=== PATIENT | female | born 1960 | race Caucasian/White ===

== ENCOUNTER 2023-05-01 13:53 | Emergency (ER) | payer OTHER, SELFPAY ==
[2023-05-01 13:59] VITALS: BP 173/94
--- NOTE | 2023-05-01 15:48 | ED.MUSCINJ ---
HPI-Injury
General
Chief Complaint: Musculo-Skeletal Complaint
Source: patient
Exam Limitations: none
Time Seen by Provider: 05/01/23 15:21
Nursing documentation reviewed up to this point in time: agreed with
Travel History
Have you had any contact with someone who has COVID-19?: No
Do you have any symptoms of coronavirus? Fever > 100 degrees, chills, cough, shortness of breath, sore throat, loss of taste or smell, muscle aches, or headache?: No
History of Present Illness-Injury
Is this injury a work related problem?: No
Is pt an associate of [facility]?: No
Initial Injury comments:
Patient to ED with complaint of left medial ankle pain and swelling. States she wore hi-heels last tuesday. No injury. Tuesday night felt mild discomfort to posteror calf and bilateral ankle. States pain to ankle has gotten progressively worse.
Now with medial ankle and foot swelling. Still with mild calf discomfort. No fever/chills, recent illness. No skin rash. Brought to ED by spouse for eval.
Past History
Past History
ED Past Medical History: Hypothyroidism
ED Past Surgical History: None
Patient has exhibited threatening behavior?: No
Social History
Personal:
Living: with family
Employment: Employed
Review of Systems
Review of Systems
Allergies reviewed?: Yes
All Other Systems: ROS reviewed and negative except as documented in HPI and ROS
Constitutional: Reports no symptoms
EENT: Reports no symptoms
Respiratory: Reports no symptoms
Cardiac: Reports no symptoms
ABD/GI: Reports no symptoms
Musculoskeletal: Reports joint pain (pain and swelling to left medial ankle, mild calf discomfort.)
Skin: Reports no symptoms
Neurological: Reports no symptoms
Psychiatric: Reports no symptoms
Musculoskeletal Injury Exam
Musculoskeletal Injury Exam
Left Medial Ankle:
Pain with Movement?: Moderate
Tender to palpation?: Moderate
Soft tissue swelling?: Moderate
External deformity and angulation?: None
Joint effusion?: None
Contusion?: None
Hematoma-local bleeding into tissue?: None
Strain- Sprain- Tear (Connective tissue injury)?: None
Crepitus with movement?: No
Joint instability?: No
Malalignment/deformity?: No
Range of motion: Limited
Distal skin color and temperature: normal-warm & good color
Capillary Refill: normal
Normal distal neurovascular exam?: Yes
Peripheral Pulses: posterior tibial (left): 3+, posterior tibial (right): 3+, dorsalis pedis (left): 3+ and dorsalis pedis (right): 3+
Phy Exam
General Physical Exam
General Presentation: well appearing and no apparent distress
General age: appears stated age
General Skin: warm
General Habitus: normal
General Mental: alert
Musculoskeletal Exam
Musculoskeletal Exam: joint swelling (pain and swelling left medial ankle, mild calf discomfort.) and neuro vasc intact
Skin Exam
Skin Exam: normal color, warm/dry and no rash
Psychiatric Exam
Psychiatric Exam: normal mood/affect
Injury Course
Orders/Labs/Results
Orders:
Orders
05/01/23 14:02
CR Ankle - Left Min 3 Views Urgent
Comment:
Reason For Exam: pain
05/01/23 15:44
Periph Venous Lwr Ext Left US [US Periph Venous LOWER Ext LT] Urgent
Comment:
Reason For Exam: calf tenderness, swelling lower extrem, no trauma.
05/01/23 16:35
Electrocardiogram (*1) Urgent
Reason for Study: Chest Pain
05/01/23 16:36
EKG- Treatment ONCE
05/01/23 17:07
Complete Blood Count/With Diff Urgent
Comprehensive Metabolic Panel Urgent
Lipase Urgent
Troponin I Urgent
05/01/23 18:09
Ortho Boot Left- Treatment ONCE
Short or tall?: Tall
Abnormal Lab Results
05/01/23
17:07
MCH 32.5 H pg
(27.0-31.0)
Abs Immat Gran (auto) 0.1 H 10^3/uL
(0-0.05)
Absolute Neuts (auto) 7.2 H 10^3/uL
(1.4-6.5)
Absolute Monos (auto) 0.7 H 10^3/uL
(0.1-0.6)
Immature Gran % 0.6 H %
(0-0.5)
Lymphocytes % 17.2 L %
(20.5-51.1)
Glucose 100 H mg/dl
(70-99)
05/01/23 17:07
05/01/23 17:07
*Radiology
Radiology exam reviewed: radiology read reviewed
*Pulse Oximetry
Patient hypoxic: no
*Critical Care Note
Total Time (30-74mins, 75-104mins- exclusive of procedures): Not Applicable
Update Note
Update Note:
Patient now notes substernal chest discomfort. No SOB. States she first noticed discomfort in waiting room. ALso states last week pt and drove from [place] to [place]. No prior history of blood clots. WIll check EKG, labs. US pending.
EKG NSR, Troponin neg, US neg. No furthter chest discomfort. She is discharged home and will follow up with PCP
ED Attending Note
-
Portions of this chart may have been created with voice recognition software.� Occasional wrong word or��sound alike� substitutions may have occurred due to the inherent limitations of voice recognition software.
Discharge Plan
Departure
Patient Disposition: Home (Routine Discharge)
Date of Disposition: 05/01/23
Time of Disposition: 18:09
Patient with high blood pressure during this ER visit?: No
Condition: Good
Covid-19: Not Applicable
Discharge Problem:
Acute ankle pain
Instructions: Ankle Sprain (DC), Ibuprofen, Using Cold for Pain
Referrals:
Mary Kay Grubbs DO [Active] - Call in 1-3 days for appt
Edwige Moreno DO [Family Provider] -
Interventions
Interventions:
*Risk Screen - Suicide Last Done: 05/01/23 16:24
*General Assessment Last Done: 05/01/23 13:59
*Neglect/Abuse Screening Last Done: 05/01/23 16:24
ED- Fall Risk Assessment Last Done: 05/01/23 18:22
*ED COVID-19 Vaccine History Last Done: 05/01/23 13:59
*Nursing Disposition Last Done: 05/01/23 18:22
ED-Musculoskeletal Assessment Last Done: 05/01/23 16:24
Discharge Date and Time
Discharge Date/Time: 05/01/23 18:22
[2023-05-01 17:15] LABS: % Basophils 0.8 % (0-2); % Eosinophils 1.8 % (0-6); % Immature Granulocytes 0.6 % (0-0.5); % Lymphocytes 17.2 % (20.5-51.1); % Monocytes 7.3 % (1.7-9.3); % Neutrophils 72.3 % (42.2-75.2); Absolute Basophils 0.1 10^3/uL (0-0.2); Absolute Eosinophils 0.2 10^3/uL (0-0.7); Absolute Immature Granulocytes 0.1 10^3/uL (0-0.05); Absolute Lymphocytes 1.7 10^3/uL (1.2-3.4); Absolute Monocytes 0.7 10^3/uL (0.1-0.6); Absolute Neutrophils 7.2 10^3/uL (1.4-6.5); Hemoglobin 14.4 g/dL (12.0-16.0); Mean Corp Hgb Conc. 35.1 g/dL (33.0-37.0); Mean Corpuscular Hgb 32.5 pg (27.0-31.0); Mean Corpuscular Volume 92.6 fL (81.0-99.0); Mean Platelet Volume 9.5 fL (7.4-10.4); Nucleated Red Blood Cells % 0 %; Platelet Count 242 10^3/uL (130-400); Red Blood Cell Count 4.43 10^6/uL (4.20-5.40); Red Cell Dist. Width 13.7 % (11.5-14.5)
[2023-05-01 17:38] LABS: ALT (SGPT) 21 U/L (0-35); AST (SGOT) 26 U/L (14-36); Albumin 4.4 g/dl (3.5-5.0); Alkaline Phosphatase 72 U/L (38-126); Blood Urea Nitrogen 16 mg/dl (7-17); Calcium 9.6 mg/dl (8.4-10.2); Carbon Dioxide 26 mmol/L (22-30); Chloride 106 mmol/L (98-107); Glucose 100 mg/dl (70-99); Lipase 207 U/L (23-300); Sodium 137 mmol/L (135-145); Total Bilirubin 1.3 mg/dl (0.2-1.3); Total Protein 6.9 g/dl (6.3-8.2); eGFR > 60.00
[2023-05-01 17:41] LABS: Potassium 4.4 mmol/L (3.5-5.1)
[2023-05-01 17:49] LABS: Troponin I < 0.012 ng/ml
== END 2023-05-01 18:22 | disposition home or self-care (01) ==
LOC: EMR 13:53
PROVIDERS: Nurse Practitioner; EMERGENCY PHYSICIAN Emergency Medicine; FAMILY PHYSICIAN Student in an Organized Health Care Education/Training Program
DX: M25.572 Pain in left ankle and joints of left foot (principal); E03.9 Hypothyroidism, unspecified
CPT/HCPCS: 99284; 73610; 80053; 83690; 84484; 85025; 93005; 93971

== ENCOUNTER → 2023-05-27 08:06 | Outpatient (REF) | payer OTHER, SELFPAY ==
[2023-05-27 10:53] LABS: Urine Albumin Negative (Neg - Trace); Urine Bilirubin Negative (Negative); Urine Character Clear (Clear); Urine Color Yellow; Urine Glucose Negative (Negative); Urine Ketone Negative (Negative); Urine Leukocyte 2+ (Negative); Urine Nitrite Negative (Negative); Urine Occult Blood Negative (Negative); Urine Specific Gravity 1.015 (<1.030); Urine Urobilinogen Negative (Neg - 1+)
[2023-05-27 11:08] LABS: ALT (SGPT) 27 U/L (0-35); AST (SGOT) 28 U/L (14-36); Albumin 4.5 g/dl (3.5-5.0); Alkaline Phosphatase 61 U/L (38-126); Blood Urea Nitrogen 15 mg/dl (7-17); Calcium 9.8 mg/dl (8.4-10.2); Carbon Dioxide 26 mmol/L (22-30); Chloride 106 mmol/L (98-107); Glucose 94 mg/dl (70-99); HDL Cholesterol 41 mg/dl; LDL Cholesterol, Calculated 195 mg/dl; Sodium 138 mmol/L (135-145); Total Bilirubin 1.6 mg/dl (0.2-1.3); Total Cholesterol 271 mg/dl (50-199); Total Protein 6.9 g/dl (6.3-8.2); Triglyceride 176 mg/dl (10-149); Very Low Density Lipoprotein 35 mg/dl (0-30); eGFR > 60.00
[2023-05-27 11:11] LABS: % Basophils 1.3 % (0-2); % Immature Granulocytes 0.4 % (0-0.5); % Lymphocytes 27.9 % (20.5-51.1); % Monocytes 8.4 % (1.7-9.3); Absolute Basophils 0.1 10^3/uL (0-0.2); Absolute Eosinophils 0.1 10^3/uL (0-0.7); Absolute Lymphocytes 1.3 10^3/uL (1.2-3.4); Absolute Monocytes 0.4 10^3/uL (0.1-0.6); Absolute Neutrophils 2.7 10^3/uL (1.4-6.5); Hematocrit 39.7 % (37.0-47.0); Hemoglobin 13.8 g/dL (12.0-16.0); Mean Corp Hgb Conc. 34.8 g/dL (33.0-37.0); Mean Corpuscular Hgb 31.9 pg (27.0-31.0); Mean Corpuscular Volume 91.7 fL (81.0-99.0); Mean Platelet Volume 10.2 fL (7.4-10.4); Nucleated Red Blood Cells % 0 %; Platelet Count 252 10^3/uL (130-400); Red Blood Cell Count 4.33 10^6/uL (4.20-5.40); Red Cell Dist. Width 13.4 % (11.5-14.5); White Blood Cell Count 4.6 10^3/uL (4.8-10.8)
[2023-05-27 11:16] LABS: Potassium 4.1 mmol/L (3.5-5.1)
[2023-05-27 11:36] LABS: Vitamin D, 25-OH*** 42.6 ng/mL (30-80)
[2023-05-27 11:48] LABS: Urine Amorphous Seen; Urine Mucus Few
[2023-05-27 11:49] LABS: TSH Reflex To Free T4 6.71 uIU/ml (0.47-4.68); Urine Bacteria Few (Negative); Urine Red Blood Cell 0-2 /HPF (0-2)
[2023-05-27 13:32] LABS: Erythrocyte Sed Rate 9 mm/hour (0-20)
[2023-05-28 11:41] LABS: Glycohemoglobin (HgbA1c) 5.8 % (4.0-5.6)
== END ==
LOC: HWLAB 08:06
PROVIDERS: ATTENDING PHYSICIAN Student in an Organized Health Care Education/Training Program
DX: R79.82 Elevated C-reactive protein (CRP) (principal); E55.9 Vitamin D deficiency, unspecified; R73.03 Prediabetes; E66.01 Morbid (severe) obesity due to excess calories; E06.3 Autoimmune thyroiditis; J45.21 Mild intermittent asthma with (acute) exacerbation
CPT/HCPCS: 36415; 80053; 80061; 81003; 81015; 82306; 83036; 84439; 84443; 85025; 85652; 86140

== ENCOUNTER → 2023-08-01 07:19 | Outpatient (REF) | payer OTHER, SELFPAY ==
[2023-08-01 09:23] LABS: % Basophils 0.9 % (0-2); % Immature Granulocytes 0.4 % (0-0.5); % Lymphocytes 20.3 % (20.5-51.1); % Neutrophils 68.4 % (42.2-75.2); Absolute Basophils 0.1 10^3/uL (0-0.2); Absolute Eosinophils 0.2 10^3/uL (0-0.7); Absolute Lymphocytes 1.1 10^3/uL (1.2-3.4); Absolute Monocytes 0.4 10^3/uL (0.1-0.6); Absolute Neutrophils 3.7 10^3/uL (1.4-6.5); Hematocrit 41.4 % (37.0-47.0); Hemoglobin 14.1 g/dL (12.0-16.0); Mean Corp Hgb Conc. 34.1 g/dL (33.0-37.0); Mean Corpuscular Hgb 31.1 pg (27.0-31.0); Mean Corpuscular Volume 91.2 fL (81.0-99.0); Mean Platelet Volume 10.3 fL (7.4-10.4); Nucleated Red Blood Cells % 0 %; Platelet Count 255 10^3/uL (130-400); Red Blood Cell Count 4.54 10^6/uL (4.20-5.40); White Blood Cell Count 5.4 10^3/uL (4.8-10.8)
[2023-08-01 09:41] LABS: ALT (SGPT) 20 U/L (0-35); AST (SGOT) 26 U/L (14-36); Albumin 4.7 g/dl (3.5-5.0); Alkaline Phosphatase 66 U/L (38-126); Blood Urea Nitrogen 12 mg/dl (7-17); Calcium 10.1 mg/dl (8.4-10.2); Carbon Dioxide 26 mmol/L (22-30); Chloride 106 mmol/L (98-107); Creatine Phosphokinase 64 U/L (30-135); Glucose 95 mg/dl (70-99); Potassium 4.3 mmol/L (3.5-5.1); Sodium 139 mmol/L (135-145); Total Bilirubin 1.1 mg/dl (0.2-1.3); Total Protein 6.9 g/dl (6.3-8.2); eGFR > 60.00
[2023-08-01 09:42] LABS: Erythrocyte Sed Rate 11 mm/hour (0-20)
[2023-08-01 09:48] LABS: Complement C3 122 mg/dl (88-165)
[2023-08-01 10:16] LABS: TSH Reflex To Free T4 6.72 uIU/ml (0.47-4.68)
[2023-08-01 10:35] LABS: Vitamin B12 687 pg/ml (239-931)
[2023-08-01 10:43] LABS: Free T4 1.21 ng/dl (0.78-2.19)
[2023-08-02 17:38] LABS: ANA, IgG Reflex to HEp-2 None Detected (None Detected)
== END ==
LOC: HWLAB 07:19
PROVIDERS: ATTENDING PHYSICIAN Internal Medicine Rheumatology; FAMILY PHYSICIAN Student in an Organized Health Care Education/Training Program
DX: E06.3 Autoimmune thyroiditis (principal); E53.8 Deficiency of other specified B group vitamins; R21 Rash and other nonspecific skin eruption; R79.89 Other specified abnormal findings of blood chemistry
CPT/HCPCS: 36415; 80053; 82550; 82607; 84439; 84443; 85025; 85652; 86038; 86140; 86160

== ENCOUNTER → 2023-10-06 07:58 | Outpatient (REF) | payer OTHER, SELFPAY ==
[2023-10-06 10:05] LABS: HDL Cholesterol 38 mg/dl; LDL Cholesterol, Calculated 138 mg/dl; Total Cholesterol 239 mg/dl (50-199); Triglyceride 319 mg/dl (10-149); Very Low Density Lipoprotein 63 mg/dl (0-30)
== END ==
LOC: HWLAB 07:58
PROVIDERS: ATTENDING PHYSICIAN Student in an Organized Health Care Education/Training Program
DX: E78.2 Mixed hyperlipidemia (principal); E06.3 Autoimmune thyroiditis
CPT/HCPCS: 36415; 80061; 84443

== ENCOUNTER → 2023-12-06 08:43 | Outpatient (REF) | payer MEDICARE, OTHER, SELFPAY ==
[2023-12-06 11:47] LABS: HDL Cholesterol 38 mg/dl; LDL Cholesterol, Calculated 160 mg/dl; Total Cholesterol 264 mg/dl (50-199); Triglyceride 331 mg/dl (10-149); Very Low Density Lipoprotein 66 mg/dl (0-30)
[2023-12-06 12:17] LABS: TSH Reflex To Free T4 3.62 uIU/ml (0.47-4.68)
== END ==
LOC: HWLAB 08:43
PROVIDERS: ATTENDING PHYSICIAN Family Medicine
DX: E78.2 Mixed hyperlipidemia (principal); R73.03 Prediabetes; E06.3 Autoimmune thyroiditis
CPT/HCPCS: 36415; 80061; 83036; 84443

== ENCOUNTER → 2023-12-21 12:56 | Outpatient (REF) | payer MEDICARE, OTHER, SELFPAY | LOC: HWRAD 12:56 | PROVIDERS: ATTENDING PHYSICIAN Family Medicine | DX: Z12.31 Encounter for screening mammogram for malignant neoplasm of breast (principal); N95.1 Menopausal and female climacteric states; Z00.00 Encounter for general adult medical examination without abnormal findings; Z78.0 Asymptomatic menopausal state | CPT/HCPCS: 77063; 77067; 77080; 93005 ==

== ENCOUNTER → 2024-02-28 07:37 | Outpatient (REF) | payer MEDICARE, OTHER, SELFPAY ==
[2024-02-28 10:11] LABS: ALT (SGPT) 14 U/L (0-35); AST (SGOT) 19 U/L (14-36); Albumin 4.8 g/dl (3.5-5.0); Alkaline Phosphatase 62 U/L (38-126); Blood Urea Nitrogen 14 mg/dl (7-17); Calcium 10.1 mg/dl (8.4-10.2); Carbon Dioxide 22 mmol/L (22-30); Chloride 105 mmol/L (98-107); Glucose 86 mg/dl (70-99); HDL Cholesterol 41 mg/dl; LDL Cholesterol, Calculated 131 mg/dl; Potassium 4.3 mmol/L (3.5-5.1); Sodium 142 mmol/L (135-145); Total Bilirubin 0.7 mg/dl (0.2-1.3); Total Cholesterol 241 mg/dl (50-199); Total Protein 7.1 g/dl (6.3-8.2); Triglyceride 349 mg/dl (10-149); Very Low Density Lipoprotein 69 mg/dl (0-30); eGFR > 60.00
== END ==
LOC: HWLAB 07:37
PROVIDERS: ATTENDING PHYSICIAN Family Medicine
DX: E78.2 Mixed hyperlipidemia (principal)
CPT/HCPCS: 36415; 80053; 80061

== ENCOUNTER → 2024-04-02 08:26 | Outpatient (REF) | payer MEDICARE, OTHER, SELFPAY | LOC: HWRCS 08:26 | PROVIDERS: ATTENDING PHYSICIAN Internal Medicine Interventional Cardiology; FAMILY PHYSICIAN Family Medicine | DX: R94.31 Abnormal electrocardiogram [ECG] [EKG] (principal) | CPT/HCPCS: 93306 ==

== ENCOUNTER → 2024-04-05 07:32 | Outpatient (REF) | payer MEDICARE, OTHER, SELFPAY | LOC: DHCBC/DCA 07:32 | PROVIDERS: ATTENDING PHYSICIAN Internal Medicine Interventional Cardiology; FAMILY PHYSICIAN Family Medicine | DX: R94.31 Abnormal electrocardiogram [ECG] [EKG] (principal) | CPT/HCPCS: 78452; 93017; A9500 ==

== ENCOUNTER → 2024-05-29 08:13 | Outpatient (REF) | payer MEDICARE, OTHER, SELFPAY ==
[2024-05-29 13:49] LABS: HDL Cholesterol 37 mg/dl; LDL Cholesterol, Calculated 146 mg/dl; Total Cholesterol 252 mg/dl (50-199); Triglyceride 346 mg/dl (10-149); Very Low Density Lipoprotein 69 mg/dl (0-30)
[2024-05-29 14:01] LABS: Free T4 1.48 ng/dl (0.78-2.19)
[2024-05-29 14:15] LABS: TSH 3.57 uIU/ml (0.47-4.68)
[2024-06-01 09:59] LABS: Lipoprotein a (Lp a) 7 mg/dL (<=29)
[2024-06-01 10:09] LABS: Apolipoprotein B 154 mg/dL (60-117)
== END ==
LOC: HWLAB 08:13
PROVIDERS: ATTENDING PHYSICIAN Internal Medicine Interventional Cardiology; FAMILY PHYSICIAN Family Medicine
DX: E06.3 Autoimmune thyroiditis (principal); E78.2 Mixed hyperlipidemia; R94.31 Abnormal electrocardiogram [ECG] [EKG]
CPT/HCPCS: 36415; 80061; 82172; 83695; 84439; 84443

== ENCOUNTER → 2025-02-14 13:09 | Outpatient (REF) | payer MEDICARE, OTHER, SELFPAY ==
[2025-02-14 19:00] LABS: Urine Character Clear (Clear)
== END ==
LOC: CLAB 13:09
PROVIDERS: ATTENDING PHYSICIAN Family Medicine
DX: R30.0 Dysuria (principal)
CPT/HCPCS: 81003; 87086